=== PATIENT | female | born 1975 | race Caucasian/White ===

== ENCOUNTER 2016-06-01 08:33 | Inpatient (IN) | payer OTHER ==
--- NOTE | ~2016-06-01 | DS ---
Discharge Summary [facility] [address] [place]. [address] NAME: CHARLA LANDERS : 77 STATUS : DIS IN PAT#: [id number] AGE: 41 ADM/REG DATE : 06/01/16 MR#: [id number] REPORT SERV DATE: 06/13/16 DICTATED BY: EL REYNOLDS DATE: 06/12/16 REPORT STATUS : Draft TRANSCRIBED BY: QUIN DATE: 06/12/16 Data Collection from hospitalization DISCHARGE DIAGNOSIS(ES): 1. Perforated viscus with peritonitis, status post remote Claudai-en-Y gastric bypass with perforated Claudia limb of jejunum. 2. Obesity. 3. Anxiety. 4. Degenerative disk disease. 5. Chronic back pain. CONSULTATIONS: None. PROCEDURES PERFORMED: 1. Diagnostic laparoscopy, abdominal washout, and Bull patch closure of perforation 06/01/2016. 2. CT of the abdomen and pelvis without contrast, 06/01/2016. MEDICATIONS: 1. Carafate 1 g before meals and at bedtime. 2. Valium 10 mg every 8 hours as needed. 3. Lortab 7.5/325 as needed for pain. CONDITION AT DISCHARGE: Upon discharge, she did appear to be doing well and had no complaints. DISPOSITION: She was discharged home to continue a full liquid diet with activity as discussed. She is to follow up with me in the office on 06/20/2016. HOSPITAL COURSE: This 41-year-old female, had a significant past surgical history of gastric bypass surgery 10 years ago. Also of significance, she suffers from migraines and takes Goody's powder 4 to 5 times a month. Her last use was approximately a week or two prior to admission. She reported that she had sudden onset of acute abdominal pain at 0600 hours on the day of admission that was constant, diffuse, sharp, and crampy in nature and it was not associated with any symptoms. She had no fever, chills, nausea, vomiting, diarrhea, hematuria, or dysuria. She said the pain was worse with movement and slightly better, but not alleviated by being still as possible. She reported the pain radiated up into her shoulders and around her back as well. She never had this kind of pain before. She was admitted for further evaluation and treatment. Upon admission to the hospital, she had been placed on an n.p.o. diet. She did undergo the above CT of the abdomen and pelvis while in the emergency room. Surgery had been discussed with the patient, and she was agreeable to proceed. She was then taken to the operating room where she did undergo the above diagnostic laparoscopy. She did tolerate this well and was transferred to the recovery room. On postop day 1, she was noted to have poor pain control and did state that morphine was not working. She was still n.p.o., however, had no nausea. She was afebrile and her vital signs were stable. Her hemoglobin was at 8.2, potassium 3.4, WBCs were at 13, and platelet count 321. Her pain medications were adjusted for better pain control, and she was still n.p.o. On postop day 2, her pain was much better controlled with Dilaudid. Her Discharge Summary [facility] [address] [facility] [place]. [address] NAME: CHARLA LANDERS : 77 STATUS : DIS IN PAT#: [id number] AGE: 41 ADM/REG DATE : 06/01/16 MR#: [id number] REPORT SERV DATE: 06/13/16 DICTATED BY: EL REYNOLDS DATE: 06/12/16 REPORT STATUS : Draft TRANSCRIBED BY: QUIN DATE: 06/12/16 temperatures had ranged between 97.9 and 100.8. She had a heart rate of 114. Her potassium was at 3.4 and creatinine 0.7. Her abdomen was soft and less tender, and nondistended. She had been placed on ice chips and was encouraged to ambulate. On postop day 3, she continued to do well and was noted to be feeling much better. Her Nolan catheter was therefore removed. Her diet was being slowly advanced. On postop day 4, her IV fluids were decreased and her diet was being slowly advanced. She did have good pain control. On postop day 5, she tolerated a full liquid diet. She was afebrile and her vital signs had remained stable. She did continue to do well and was therefore discharged with the above instructions. Information collected by: Deysi Casillas. I submit the above information as my discharge summary. TIFFANY El Reynolds M.D. / [id number] CC: El Reynolds M.D.
--- NOTE | ~2016-06-01 | HP ---
History And Physical [place] [id number] [facility] [place]. [address] NAME: CHARLA LANDERS : 77 STATUS : [facility]#: [id number] AGE: 41 ADM/REG DATE : 06/01/16 MR#: [id number] REPORT SERV DATE: 06/01/16 DICTATED BY: EL REYNOLDS DATE: 06/01/16 REPORT STATUS : Draft TRANSCRIBED BY: MODEvonne DATE: 06/01/16 DATE OF ADMISSION: 06/01/2016 CHIEF COMPLAINT: Abdominal pain. HISTORY OF PRESENT ILLNESS: This is a 41-year-old female with a significant past surgical history of gastric bypass surgery ten years ago. Also of significance, the patient does suffer from migraines and takes Goody powders four to five times a month. Her last use was approximately a week or two ago. The patient reports she had a sudden onset of acute abdominal pain at 0600 hours this morning that is constant, diffuse, sharp, and crampy in nature, it is not associated with any symptoms. No fever, chills, nausea, vomiting, diarrhea, hematuria, or dysuria. The patient says the pain is worse with movement and slightly better but not alleviated by being still as possible. She reports the pain radiates up into her shoulders and around her back as well. She has never had this kind of pain before. REVIEW OF SYSTEMS: Twelve systems reviewed, negative except as mentioned in HPI. ALLERGIES: NO KNOWN DRUG ALLERGIES. PAST MEDICAL HISTORY: Obesity, anxiety, degenerative disc disease, and chronic back pain. PAST SURGICAL HISTORY: She has had a back surgery that went through an anterior abdominal approach. She has had gastric bypass 10 years ago. Claudia-en-Y gastric bypass 10 years ago. She has had a laparoscopic cholecystectomy. She has had a partial hysterectomy and she has had a . SOCIAL HISTORY: No tobacco, alcohol, or drugs. Lives with in [place] and is unemployed. FAMILY HISTORY: No autoimmune diseases. Grandfather with lung cancer. MEDICINES: The patient does report Goody Powder use. No other medicines mentioned used on a daily basis. PHYSICAL EXAMINATION: VITAL SIGNS: Temperature 97.9, pulse of 85, respiratory rate 30, blood pressure 100/60. GENERAL: Well developed, well nourished, in pain lying as still as possible and tachypneic, white female, appears her stated age. HEENT: Normocephalic and atraumatic. PERRLA. Mucous membranes are dry. Cheilosis at the corners of mouth. NECK: No lymphadenopathy. Trachea midline. CARDIOVASCULAR: Regular rate and rhythm. LUNGS: Clear to auscultation bilaterally. ABDOMEN: Tense, firm, distended. Tender to palpation diffusely. Positive rebound. History And Physical [address] [place]. [address] NAME: CHARLA LANDERS : 77 STATUS : DEP PAT#: [id number] AGE: 41 ADM/REG DATE : 06/01/16 MR#: [id number] REPORT SERV DATE: 06/01/16 DICTATED BY: EL REYNOLDS DATE: 06/01/16 REPORT STATUS : Draft TRANSCRIBED BY: QUIN DATE: 06/01/16 Positive for involuntary guarding. Positive for peritonitis. EXTREMITIES: No clubbing, cyanosis, edema. 2+ pulses. MUSCULOSKELETAL: Moves all extremities well. NEUROLOGIC: Cranial nerves 2 through 12 are intact. A and O x3. LABORATORY DATA: White blood cell 9.2, hematocrit 34, platelets 412, sodium 142, potassium 3.1, chloride 109, bicarb 18, BUN 9, creatinine 0.9, glucose 107. test was negative. Lipase 141. LFTs were negative. Calcium was 8.8. CT scan showed pneumoperitoneum. ASSESSMENT AND PLAN: This is a 41-year-old female with a perforated viscus and jw peritonitis. We will take the patient to the operating room for an emergent diagnostic laparoscopy, possible exploratory laparotomy. The procedure was indicated. I spoke with the patient's family at the bedside at length about her medical condition in future hospital course. I explained risks, benefits, alternatives of the procedure. Risks included, but not limited to, pain, bleeding, infection, injury to surrounding structures, failure of the procedure, need for future operations, heart attack, stroke, DVT, PE, failure to wean from the ventilator and . The patient and family expressed verbal understanding, wished to proceed forward with this emergent procedure. All questions were answered. DICTATED BY: MD LORENA Neumann/QUIN El Reynolds M.D. / [id number] CC: El Reynolds M.D.
--- NOTE | ~2016-06-01 | OP ---
Record Of Operation [facility] [address] [place]. [address] NAME: CHARLA LANDERS : 77 STATUS : [facility]#: [id number] AGE: 41 ADM/REG DATE : 06/01/16 MR#: [id number] REPORT SERV DATE: 06/01/16 DICTATED BY: EL REYNOLDS DATE: 06/01/16 REPORT STATUS : Draft TRANSCRIBED BY: MODL DATE: 06/01/16 DATE OF PROCEDURE: 06/01/2016 PREOPERATIVE DIAGNOSIS: Perforated viscus with peritonitis status post remote Claudia-en-Y gastric bypass. POSTOPERATIVE DIAGNOSIS: Perforated viscus with peritonitis status post remote Claudia-en-Y gastric bypass with perforated Claudia limb of jejunum. PROCEDURE: Diagnostic laparoscopy, abdominal washout, and Bull patch closure of perforation. SURGEON: El Reynolds M.D. RESIDENT SURGEON: Dave Weller M.D. ANESTHESIA: General. ESTIMATED BLOOD LOSS: 10 mL. DETAILS OF PROCEDURE: The patient arrived in the operating suite and placed on the table in supine position. General anesthesia was obtained via an endotracheal tube. Abdomen was prepped and draped in a sterile manner. 0.5% Marcaine with epinephrine was infiltrated over the supraumbilical left rectus muscle. A small incision was performed. A 10 mm blunt trocar was inserted under laparoscopic visualization. The peritoneal cavity was insufflated with CO2 gas to 15 mmHg pressure. The patient was placed in reverse Trendelenburg. Additional trocars were inserted in the bilateral anterior axillary lines, subxiphoid, and right paramedian regions. Instruments were introduced. The lateral segment of the left lobe of liver was retracted with a self-retaining retractor, although there were significant adhesions of either stomach or the Claudia limb of jejunum to the posterior aspect of the lateral segment of the left lobe of the liver from prior surgery. There was a small amount of fluid, nonpurulent, in the right subphrenic and left subphrenic spaces. Using copious irrigation, this was removed. There was almost no fluid surprisingly in Morison's pouch, but in the region of the Claudia limb, there was an obvious perforation anteriorly. This was irrigated. Edges were partially mobilized with sharp and blunt dissection. The tongue of very mobile, viable, and noninflamed omentum was then chosen for Bull patch. 2-0 silk sutures were then placed through the bowel x2. The omentum was then laid over and the sutures closed creating a patch, area was again irrigated, there was no leak. A 15 Mumtaz drain was placed in the right subphrenic space into Morison's pouch. Trocar was removed under laparoscopic visualization to ensure no bleeding. The patient returned to supine position, and the drain secured with 3-0 PDS suture. Skin closure at all sites with subcuticular 4-0 Monocryl. Sterile dressing were applied. The patient awakened and extubated and taken to PACU. Record Of Operation [facility] [address] [place]. [address] NAME: CHARLA LANDERS : 77 STATUS : DEP [facility]#: [id number] AGE: 41 ADM/REG DATE : 06/01/16 MR#: [id number] REPORT SERV DATE: 06/01/16 DICTATED BY: EL REYNOLDS DATE: 06/01/16 REPORT STATUS : Draft TRANSCRIBED BY: QUIN DATE: 06/01/16 /QUIN El Reynolds M.D. / [id number]
[2016-06-01 08:28] LABS: BASOPHILS 0.1 %; BASOPHILS ABSOLUTE 0.01 10/3/uL (0.0-0.16); EOSINOPHILS 0.8 %; EOSINOPHILS ABSOLUTE 0.07 10/3/uL (0.0-0.53); IMMATURE GRANULOCYTES 0.2 %; IMMATURE GRANULOCYTES ABSOLUTE 0.02 10/3/uL (0.0-0.11); LYMPHOCYTES 18.3 %; LYMPHOCYTES ABSOLUTE 1.69 10/3/uL (0.67-4.30); MEAN CORPUS HGB CONC 30.6 g/dL (32.0-36.0); MEAN PLATELET VOLUME 9.3 fL (9.2-13.0); MONOCYTES 3.3 %; NEUTROPHILS 77.3 %; NEUTROPHILS ABSOLUTE 7.12 10/3/uL (2.02-8.40); RBC DISTRIBUTION WIDTH 17.8 % (12.0-16.0); RED CELL COUNT 4.68 10/6/uL (4.0-5.6)
[2016-06-01 08:29] LABS: ER CBC TAT 0 Hrs 19 Mins; HEMOGLOBIN 10.4 g/dL (12.0-16.0); MANUAL DIFF NO %; MEAN CORPUSCULAR HEMOGLOB 22.2 pg (26.0-34.0); MEAN CORPUSCULAR VOLUME 72.6 fL (80-100); PLATELET COUNT 412 10/3/uL (150-400); WHITE BLOOD CELLS 9.2 10/3/uL (4.5-10.5)
[2016-06-01 08:48] LABS: A/G RATIO 1.2 (0.7-1.9); ALBUMIN 3.8 G/DL (3.5-5.0); ALKALINE PHOSPHATASE 86 U/L (45-117); BUN (BLOOD UREA NITROGEN) 9 MG/DL (6-23); CALCIUM, SERUM 8.8 MG/DL (8.5-10.4); CHLORIDE, SERUM 109 MMOL/L (96-112); GFR AFRICAN AMERICAN 93 ML/MIN (>=60); GFR NON AFRICAN AMERICAN 80 ML/MIN (>=60); GLOBULIN 3.1 G/DL (2.5-4.1); GLUCOSE, SERUM 107 MG/DL (60-99); POTASSIUM, SERUM 3.1 MMOL/L (3.5-5.3); SGOT(AST) 15 U/L (5-40); SGPT(ALT) 19 U/L (5-65); SODIUM, SERUM 142 MMOL/L (135-148); TOTAL BILIRUBIN 0.3 MG/DL (0-1.2); TOTAL PROTEIN 6.9 G/DL (6.0-8.5)
[2016-06-01 08:49] LABS: CO2 (CARBON DIOXIDE) 18 MMOL/L (24-34)
[2016-06-01 08:58] LABS: ANISOCYTOSIS 1+ (5-10/OIF) (0-5/OIF); ELLIPTOCYTES 1+ (3-10/OIF) (0-2/OIF); HYPOCHROMIA 1+ (3-10/OIF) (0-2/OIF); PLATELET ESTIMATE SLT INC (ADEQUATE)
[2016-06-01 08:59] LABS: BURR CELLS 1+ (3-10/OIF) (0-2/OIF)
[2016-06-01] MEDS ORDERED: ADVIL PO (21:21)
[2016-06-02 06:18] LABS: ASCORBIC ACID (UR NOT ORDER) NEG (NEG); BILIRUBIN, URINE NEGATIVE (NEG); ER URINALYSIS TAT 0 Hrs 42 Mins; KETONE, URINE TRACE MG/DL (NEG); LEUKOCYTE ESTERASE(NOT OR NEG (NEG); NITRITE (URINE) NEG (NEG)
[2016-06-02 06:46] LABS: BUN (BLOOD UREA NITROGEN) 10 MG/DL (6-23); CHLORIDE, SERUM 111 MMOL/L (96-112); CO2 (CARBON DIOXIDE) 21 MMOL/L (24-34); GFR AFRICAN AMERICAN 126 ML/MIN (>=60); GFR NON AFRICAN AMERICAN 108 ML/MIN (>=60); GLUCOSE, SERUM 117 MG/DL (60-99); POTASSIUM, SERUM 3.4 MMOL/L (3.5-5.3); SODIUM, SERUM 143 MMOL/L (135-148)
[2016-06-02 06:47] LABS: CALCIUM, SERUM 7.6 MG/DL (8.5-10.4)
[2016-06-02 07:03] LABS: BASOPHILS 0.1 %; BASOPHILS ABSOLUTE 0.01 10/3/uL (0.0-0.16); EOSINOPHILS 0.1 %; EOSINOPHILS ABSOLUTE 0.01 10/3/uL (0.0-0.53); IMMATURE GRANULOCYTES 0.3 %; IMMATURE GRANULOCYTES ABSOLUTE 0.04 10/3/uL (0.0-0.11); LYMPHOCYTES 8.1 %; LYMPHOCYTES ABSOLUTE 1.07 10/3/uL (0.67-4.30); MEAN CORPUS HGB CONC 31.1 g/dL (32.0-36.0); MEAN CORPUSCULAR VOLUME 74.2 fL (80-100); MEAN PLATELET VOLUME 9.2 fL (9.2-13.0); MONOCYTES 3.2 %; MONOCYTES ABSOLUTE 0.42 10/3/uL (0.21-1.20); NEUTROPHILS 88.2 %; NEUTROPHILS ABSOLUTE 11.71 10/3/uL (2.02-8.40); PLATELET COUNT 321 10/3/uL (150-400); RBC DISTRIBUTION WIDTH 18.3 % (12.0-16.0)
[2016-06-02 07:21] LABS: HEMATOCRIT 26.4 % (36.0-48.0); HEMOGLOBIN 8.2 g/dL (12.0-16.0); MANUAL DIFF NO %; RED CELL COUNT 3.56 10/6/uL (4.0-5.6); WHITE BLOOD CELLS 13.3 10/3/uL (4.5-10.5)
[2016-06-02 07:58] LABS: WBC (NOT ORDERED) (RFLEX) 0 (0-5)
[2016-06-07] MEDS ORDERED: NORCO1 TA2 PO (11:50)
[2016-06-07] MEDS ORDERED: VALIUM10 MG PO (11:51)
[2016-06-07] MEDS ORDERED: SUCR PO (11:52)
== END 2016-06-07 14:50 | disposition home or self-care (01) | DRG 329 ==
LOC: ER 08:33 → 5SO 17:12
PROVIDERS: Emergency Medicine; Specialist
PROC: 0DU947Z Supplement Duodenum with Autologous Tissue Substitute, Percutaneous Endoscopic Approach (ICD-10-PCS; principal; 2016-06-01 11:15)
DX: K91.89 Other postprocedural complications and disorders of digestive system (principal); K65.8 Other peritonitis; E66.9 Obesity, unspecified; F41.9 Anxiety disorder, unspecified; Z90.49 Acquired absence of other specified parts of digestive tract; Z98.890 Other specified postprocedural states
CPT/HCPCS: 36415; 74176; 80048; 80053; 81001; 83690; 84703; 85025; 86850; 86900; 86901; 93005; 96365; 96375; 96376; 99285; A9270-GY; C9113; J0330; J1170; J1450; J1885; J2250; J2270; J2370; J2405; J2543; J2710; J3010; J3360

== ENCOUNTER 2016-06-18 15:02 | Emergency (ER) | payer OTHER ==
[2016-06-18 14:11] LABS: BASOPHILS 0.8 %; BASOPHILS ABSOLUTE 0.05 10/3/uL (0.0-0.16); EOSINOPHILS 0.3 %; EOSINOPHILS ABSOLUTE 0.02 10/3/uL (0.0-0.53); ER CBC TAT 0 Hrs 03 Mins; HEMOGLOBIN 10.9 g/dL (12.0-16.0); IMMATURE GRANULOCYTES 0.2 %; IMMATURE GRANULOCYTES ABSOLUTE 0.01 10/3/uL (0.0-0.11); LYMPHOCYTES 33.6 %; LYMPHOCYTES ABSOLUTE 2.11 10/3/uL (0.67-4.30); MEAN CORPUS HGB CONC 32.1 g/dL (32.0-36.0); MEAN CORPUSCULAR VOLUME 71.9 fL (80-100); MEAN PLATELET VOLUME 8.3 fL (9.2-13.0); MONOCYTES 8.3 %; MONOCYTES ABSOLUTE 0.52 10/3/uL (0.21-1.20); NEUTROPHILS 56.8 %; NEUTROPHILS ABSOLUTE 3.57 10/3/uL (2.02-8.40); PLATELET COUNT 703 10/3/uL (150-400); RBC DISTRIBUTION WIDTH 17.3 % (12.0-16.0); RED CELL COUNT 4.73 10/6/uL (4.0-5.6); WHITE BLOOD CELLS 6.3 10/3/uL (4.5-10.5)
[2016-06-18 14:15] LABS: MANUAL DIFF NO %
[2016-06-18 14:25] LABS: A/G RATIO 0.8 (0.7-1.9); ALBUMIN 3.2 G/DL (3.5-5.0); ALKALINE PHOSPHATASE 93 U/L (45-117); BUN (BLOOD UREA NITROGEN) 11 MG/DL (6-23); CALCIUM, SERUM 8.7 MG/DL (8.5-10.4); CHLORIDE, SERUM 107 MMOL/L (96-112); CO2 (CARBON DIOXIDE) 19 MMOL/L (24-34); CREATININE 0.78 MG/DL (0.55-1.02); GFR AFRICAN AMERICAN 110 ML/MIN (>=60); GFR NON AFRICAN AMERICAN 95 ML/MIN (>=60); GLOBULIN 3.8 G/DL (2.5-4.1); GLUCOSE, SERUM 92 MG/DL (60-99); POTASSIUM, SERUM 3.7 MMOL/L (3.5-5.3); SGOT(AST) 60 U/L (5-40); SGPT(ALT) 41 U/L (5-65); SODIUM, SERUM 140 MMOL/L (135-148); TOTAL BILIRUBIN 0.2 MG/DL (0-1.2)
[~2016-06-18 15:02] MED LIST: ADVIL PO; NORCO1 TA2 PO; SUCR PO; VALIUM10 MG PO
[2016-06-18 15:11] LABS: ASCORBIC ACID (UR NOT ORDER) NEG (NEG); BILIRUBIN, URINE NEGATIVE (NEG); ER URINALYSIS TAT 0 Hrs 08 Mins; KETONE, URINE NEGATIVE (NEG); LEUKOCYTE ESTERASE(NOT OR NEG (NEG); NITRITE (URINE) NEG (NEG); WBC (NOT ORDERED) (RFLEX) < 1 (0-5)
== END 2016-06-18 18:53 | disposition home or self-care (01) ==
LOC: ER 15:02
PROVIDERS: Emergency Medicine
DX: K85.90 Acute pancreatitis without necrosis or infection, unspecified (principal); E86.0 Dehydration; F41.9 Anxiety disorder, unspecified; Z79.899 Other long term (current) drug therapy; Z91.048 Other nonmedicinal substance allergy status
CPT/HCPCS: 74176; 80053; 81001; 83690; 85025; 96374; 96375; 99284; J1170; J2405